=== PATIENT | male | born 1995 | race Caucasian/White ===

== ENCOUNTER 2018-04-29 10:19 | Emergency (ER) | payer BC ==
[~2018-04-29] VITALS: Ht 175.3 cm; Wt 64.8 kg
[2018-04-29 11:10] LABS: BASOPHILS # (AUTO) 0.07 x10^3/uL (0-0.1); BASOPHILS % (AUTO) 1 % (0-1); EOSINOPHILS # (AUTO) 0.11 x10^3/uL (0-0.4); EOSINOPHILS % (AUTO) 1 % (1-7); LYMPHOCYTES # (AUTO) 2.96 x10^3/uL (1-3.4); LYMPHOCYTES % (AUTO) 36 % (22-44); MD NO; MEAN CORPUSCULAR HEMOGLOBIN 30.1 pg (27.5-34.5); MEAN CORPUSCULAR HGB CONC 33.3 g/dL (33.2-36.2); MEAN CORPUSCULAR VOLUME 90.4 fL (81-97); MEAN PLATELET VOLUME 9.3 fL (7.4-10.4); MONOCYTES # (AUTO) 0.62 x10^3/uL (0.2-0.8); MONOCYTES % (AUTO) 8 % (2-9); NEUTROPHILS # (AUTO) 4.37 x10^3/uL (1.8-6.8); NEUTROPHILS % (AUTO) 54 % (42-75); PLATELET COUNT 221 x10^3/uL (130-400); RED BLOOD COUNT 5.23 x10^6/uL (4.38-5.82); RED CELL DISTRIBUTION WIDTH 14.8 % (9.4-14.8)
[2018-04-29 11:19] LABS: ALBUMIN 4.1 g/dL (3.4-5.0); ANION GAP 8 mmol/L (5-15); CALCIUM 8.6 mg/dL (8.5-10.1); CHLORIDE 107 mmol/L (98-107); CREATININE 0.78 mg/dL (0.7-1.3)
[2018-04-29 11:23] LABS: TROPONIN I < 0.015 ng/mL (0.000-0.045)
[2018-04-29 11:34] LABS: HCT (SEDRATE) 47.3 % (39.2-51.8)
[2018-04-29 11:54] VITALS: BP 123/72
== END 2018-04-29 12:42 | disposition home or self-care (01) ==
LOC: ED 12:36
DX: R07.2 Precordial pain (principal); R09.1 Pleurisy; R00.1 Bradycardia, unspecified
CPT/HCPCS: 36415; 71045; 80048; 82040; 84484; 85025; 85651; 93005; 99285